=== PATIENT | female | born 1960 | race Caucasian/White ===

== ENCOUNTER 2018-04-15 18:05 | Emergency (ER) | payer OTHER ==
[~2018-04-15] VITALS: Ht 162.6 cm; Wt 114.8 kg
[2018-04-15] MEDS ORDERED: HYDR-971 PO (23:30)
--- NOTE | 2018-04-15 23:31 | PHYS DOC ---
Past Medical History Past Medical History: No Pertinent History Past Surgical History: No Surgical History Alcohol Use: Occasionally Drug Use: None Adult General Chief Complaint Chief Complaint: FOOT INJURY PAIN [facility] HPI Patient is a 58 year old female who presents with top of foot pain with walking times one month causing her to walk differently last month. Patient states that she saw her primary care and when stained told her about it and the doctor stated that it was probably arthritis. Patient states that now since Sunday foot has been slightly more swollen than it has been and the ball of the foot is hurting to the point where she sits that is hard to walk on has been kind of walking on her heel. Patient states her pain is an 8 out of 10 and that is his a deep throbbing pain. Patient states she has had nothing for pain. Patient denies fevers or any medication use daily. She has no known drug allergies. Review of Systems Review of Systems Constitutional: Denies fever or chills [] Eyes: Denies change in visual acuity, redness, or eye pain [] HENT: Denies nasal congestion or sore throat [] Respiratory: Denies cough or shortness of breath [] Cardiovascular: No additional information not addressed in HPI [] GI: Denies abdominal pain, nausea, vomiting, bloody stools or diarrhea [] : Denies dysuria or hematuria [] Musculoskeletal: Denies back pain or joint pain. Right foot swelling and pain x 1 month. [] Integument: Denies rash or skin lesions [] Neurologic: Denies headache, focal weakness or sensory changes [] Endocrine: Denies polyuria or polydipsia [] All other systems were reviewed and found to be within normal limits, except as documented in this note. Current Medications Current Medications Current Medications Medications (Trade) Dose Ordered Sig/[facility] Start Time Stop Time Status Last Admin Dose Admin Acetaminophen/ Hydrocodone Bitart (Lortab 5/325) 1 tab 1X ONCE 04/16/18 00:00 04/16/18 00:01 Allergies Allergies Allergies Coded Allergies Type Severity Reaction Last Updated Verified No Known Drug Allergies 04/15/18 No Physical Exam Physical Exam Constitutional: Well developed, well nourished, no acute distress, non-toxic appearance. [] HENT: Normocephalic, atraumatic, bilateral external ears normal, oropharynx moist, no oral exudates, nose normal. [] Eyes: PERRLA, EOMI, conjunctiva normal, no discharge. [] Neck: Normal range of motion, no tenderness, supple, no stridor. [] Cardiovascular:Heart rate regular rhythm, no murmur [] Lungs & Thorax: Bilateral breath sounds clear to auscultation [] Abdomen: Bowel sounds normal, soft, no tenderness, no masses, no pulsatile masses. [] Skin: Warm, dry, no erythema, no rash. [] Back: No tenderness, no CVA tenderness. [] Extremities: Anterior foot tenderness, no cyanosis, no clubbing, ROM intact, 1+ edema. [] Neurologic: Alert and oriented X 3, normal motor function, normal sensory function, no focal deficits noted. [] Psychologic: Affect normal, judgement normal, mood normal. [] Current Patient Data Vital Signs Vital Signs Date Time Temp Pulse Resp B/P (MAP) Pulse Ox O2 Delivery O2 Flow Rate FiO2 04/15/18 22:31 98.6 94 18 217/115 (149) 100 Room Air 98.6 EKG EKG [] Radiology/Procedures Radiology/Procedures Right foot Impressions: No acute findings and read by Dr Felix Course & Med Decision Making Course & Med Decision Making Patient is a 58 year old female who presents with top of foot pain with walking times one month causing her to walk differently last month. Patient states that she saw her primary care and when stained told her about it and the doctor stated that it was probably arthritis. Patient states that now since Sunday foot has been slightly more swollen than it has been and the ball of the foot is hurting to the point where she sits that is hard to walk on has been kind of walking on her heel. Patient states her pain is an 8 out of 10 and that is his a deep throbbing pain. Patient states she has had nothing for pain. Patient denies fevers or any medication use daily. She has no known drug allergies. Pedal pulse is strong and present in the right foot. Patient's right foot has 1+ edema compared to the left foot. Patient has no calf pain or swelling of the leg. Patient has no joint pain, redness, heat or swelling of the joint. Patient's right extremity is warm and skin is pink warm and dry. Patient denies the foot or the leg going numb, or tingling, or turning pale and cold. Patient is neurologically intact and has no weaknesses. X-ray of right foot shows no acute findings and was read by Dr. Felix. Homans sign negative. Wells score is 0. Patient is given one [place] here in the ED. Post op shoe is given with a prescription for pain medication and follow up with primary care. [] Dragon Disclaimer Dragon Disclaimer This electronic medical record was generated, in whole or in part, using a voice recognition dictation system. Departure Departure Impression: Primary Impression: Acute foot pain Disposition: HOME, SELF-CARE Condition: STABLE Referrals: GLADYS GELLER MD (PCP) Patient Instructions: Pain of Unknown Etiology (Pain without a known Cause) Additional Instructions: Take ibuprofen for pain. Follow up with your primary care physician. Scripts Hydrocodone/Apap 5-325 (NORCO 5-325 TABLET) 1 Each Tablet 1 TAB PO PRN Q6HRS PRN for PAIN, #6 TAB 0 Refills Prov: NICOLETTE AHUMADA APRN 04/15/18 Problem Qualifiers Primary Impression: Acute foot pain Laterality: right Qualified Codes: M79.671 - Pain in right foot NICOLETTE AHUMADA APRN Apr 15, 2018 23:31
--- NOTE | 2018-04-15 23:49 | RAD ---
Three-view right foot radiographs 04/15/2018 HISTORY: Right foot pain and swelling for 3 days. AP, lateral and oblique digital radiographs of the right foot were obtained. No fracture or dislocation of the right foot is seen. Mild/moderate degenerative changes are seen scattered throughout the interphalangeal joints of the right foot along with the first MTP joint. Mild hallux valgus deformity is noted. Moderate enthesophyte formation is seen involving the plantar aspect of the posterior right calcaneus. IMPRESSION: Degenerative changes are seen involving the right foot as outlined above. No acute osseous abnormality is seen. Electronically signed by: Marc Hollis MD (04/15/2018 11:45 PM) [facility]
[2018-04-15 23:57] VITALS: BP 180/96
[2018-04-16] MEDS ORDERED: HYDROcodone/APAP 5/325MG 1 TAB TABLET PO ONE
== END 2018-04-15 23:55 | disposition home or self-care (01) ==
LOC: ER 18:05
DX: M79.671 Pain in right foot (principal); R22.41 Localized swelling, mass and lump, right lower limb
CPT/HCPCS: 73630; 99284

== ENCOUNTER → 2018-05-06 | Outpatient (CLI) | payer OTHER ==
[2018-04-15 23:57] VITALS: BP 180/96
[~2018-05-06] MED LIST: HYDR-971 PO
--- NOTE | 2018-05-14 10:52 | KCIC ---
EXAM: Bilateral digital screening mammogram with tomosynthesis. HISTORY: 58-year-old female presents for screening mammography. TECHNIQUE: Full-field digital craniocaudal and mediolateral oblique 2D and 3D tomosynthesis images of both breasts are obtained for evaluation. Computer aided detection with WisdomTree[employer] software version 9.3 was applied. COMPARISON: 01/01/2017 BREAST PARENCHYMAL DENSITY: BI-RADS Category 2: Benign finding(s). . FINDINGS: There is no new suspicious mass, microcalcification or region of architectural distortion. There are few benign nodular densities within both breasts which are more conspicuous compared to the prior study due to differences in technique. IMPRESSION: BI-RADS Category 2: Benign finding(s). RECOMMENDATION: Annual mammography is recommended. If your mammogram demonstrates that you have dense breast tissue, which could hide abnormalities, and if you have other risk factors for breast cancer that have been identified, you might benefit from supplemental screening tests that may be suggested by your ordering physician. Dense breast tissue, in and of itself, is a relatively common condition. This information is not provided to cause undue concern, but rather to raise your awareness and to promote discussion with your physician regarding the presence of other risk factors, in addition to dense breast tissue. A report of your mammography results will be sent to you and your physician. You should contact your physician if you have any questions or concerns regarding this report. Mammography is a sensitive method for finding small breast cancers, but it does not detect them all and is not a substitute for careful clinical examination. A negative mammogram does not negate a clinically suspicious finding and should not result in delay in biopsying a clinically suspicious abnormality. PQRS compliance statement - Patient information was entered into a reminder system with a target due date for the next mammogram. "Our facility is accredited by the [employer] Mammography Program." Electronically signed by: Savita Oh MD (05/14/2018 10:49 AM) [facility]
== END | disposition home or self-care (01) ==
LOC: KCIC MAMMO 17:26
PROVIDERS: ATTEND Family Medicine
DX: Z12.31 Encounter for screening mammogram for malignant neoplasm of breast (principal)
CPT/HCPCS: 77063; 77067

== ENCOUNTER → 2019-08-15 | Outpatient (CLI) | payer OTHER ==
[~2019-08-15] MED LIST changes: +HYDR-3164 PO; -HYDR-971 PO
--- NOTE | 2019-08-15 14:55 | KCIC ---
Bilateral digital screening mammograms with 3-D tomosynthesis: Reason for examination: Routine screening. Comparison is made to previous studies dated back to 01/03/2016. Bilateral mammograms in CC and oblique projections were obtained with 2-D imaging and 3-D tomosynthesis imaging on a [employer] Inspiration unit and reviewed on the workstation. Interpretation was made with the benefit of CAD. The skin and nipples show no abnormalities. No abnormal axillary lymph nodes are seen. The breast parenchyma is predominantly fatty. (Breast density: Category A.) There continue to be small parenchymal densities bilaterally which are stable. There are no new dominant masses, suspicious calcifications or architectural distortion. Impression: No evidence of malignancy. Recommend routine screening. BI-RAD Category 2: Benign. "Our facility is accredited by the [employer] Mammography Program." This patient's information has been entered into a reminder system for the patient to be notified with the results of her examination and a target date for the next mammogram. Electronically signed by: Mary Mantilla MD (08/15/2019 2:52 PM) [id number]
== END | disposition home or self-care (01) ==
LOC: KCIC MAMMO 13:51
PROVIDERS: ATTEND Family Medicine
DX: Z12.31 Encounter for screening mammogram for malignant neoplasm of breast (principal)
CPT/HCPCS: 77063; 77067

== ENCOUNTER 2020-05-09 19:27 | Emergency (ER) | payer OTHER ==
[~2020-05-09] VITALS: Ht 165.1 cm; Wt 90.0 kg
[2020-05-09 19:30] VITALS: BP 155/89
[2020-05-09] MEDS ORDERED: DEXAMETHASONE SOD PHOS 4 MG/ML VIAL PO ONE (20:15)
--- NOTE | 2020-05-09 20:19 | PHYS DOC ---
Past Medical History Past Medical History: No Pertinent History Past Surgical History: No Surgical History Smoking Status: Never Smoker Alcohol Use: Occasionally Drug Use: None General Adult EDM: Chief Complaint: SORE THROAT HPI: HPI: Patient is a 60 year old female with no past medical history currently on no medications presents with a chief complaint of sensation of swelling in her throat. Patient states symptoms started yesterday around 2000 hrs. Patient states feels as if there is something swollen in her throat. Patient is able to handle oral secretions no difficulty breathing. Patient does states she has some nasal congestion with nasal drip for the last several weeks not getting worse. Patient denies any associated fever or chills cough. On exam there is no pharyngeal erythema swelling or exudate. I do not visualize any oral pharyngeal abnormalities. Palpation of her neck I do not feel any swollen lymph nodes or masses. She has no associated rash. Patient states her daughter had similar episodes a few years ago. Review of Systems: Review of Systems: Constitutional: Denies fever or chills. [] Eyes: Denies change in visual acuity. [] HENT: Denies nasal congestion or sore throat. [Discomfort with swallowing] Respiratory: Denies cough or shortness of breath. [] Cardiovascular: Denies chest pain or edema. [] GI: Denies abdominal pain, nausea, vomiting, bloody stools or diarrhea. [] : Denies dysuria. [] Musculoskeletal: Denies back pain or joint pain. [] Integument: Denies rash. [] Neurologic: Denies headache, focal weakness or sensory changes. [] Endocrine: Denies polyuria or polydipsia. [] Lymphatic: Denies swollen glands. [] Psychiatric: Denies depression or anxiety. [] Heart Score: Risk Factors: Risk Factors: DM, Current or recent (<one month) smoker, HTN, HLP, family history of CAD, obesity. Risk Scores: Score 0 - 3: 2.5% MACE over next 6 weeks - Discharge Home Score 4 - 6: 20.3% MACE over next 6 weeks - Admit for Clinical Observation Score 7 - 10: 72.7% MACE over next 6 weeks - Early Invasive Strategies Allergies: Allergies: Allergies Coded Allergies Type Severity Reaction Last Updated Verified No Known Drug Allergies 04/15/18 No Physical Exam: PE: Constitutional: Well developed, well nourished, no acute distress, non-toxic appearance. [] HENT: Normocephalic, atraumatic, bilateral external ears normal, oropharynx moist, no oral exudates, nose normal. [] Eyes: PERRLA, EOMI, conjunctiva normal, no discharge. [] Neck: Normal range of motion, no tenderness, supple, no stridor. [] Cardiovascular:Heart rate regular rhythm, no murmur [] Lungs & Thorax: Bilateral breath sounds clear to auscultation [] Abdomen: Bowel sounds normal, soft, no tenderness, no masses, no pulsatile m asses. [] Skin: Warm, dry, no erythema, no rash. [] Back: No tenderness, no CVA tenderness. [] Extremities: No tenderness, no cyanosis, no clubbing, ROM intact, no edema. [] Neurologic: Alert and oriented X 3, normal motor function, normal sensory function, no focal deficits noted. [] Psychologic: Affect normal, judgement normal, mood normal. [] Current Patient Data: Vital Signs: Vital Signs Date Time Temp Pulse Resp B/P (MAP) Pulse Ox O2 Delivery O2 Flow Rate FiO2 05/09/20 19:30 98.4 98 20 155/89 (111) 97 Room Air 98.4 EKG: EKG: [] Radiology/Procedures: Radiology/Procedures: [] Course & Med Decision Making: Course & Med Decision Making Pertinent Labs and Imaging studies reviewed. (See chart for details) [] Dragon Disclaimer: Dragon Disclaimer: This electronic medical record was generated, in whole or in part, using a voice recognition dictation system. Departure Departure Impression: Primary Impression: Dysphagia Additional Impression: Odynophagia Disposition: 01 DC HOME SELF CARE/HOMELESS Condition: STABLE Referrals: SHERRY CARRANZA MD (PCP) Patient Instructions: Dysphagia DANNIE BERMAN I DO May 09, 2020 20:19
== END 2020-05-09 20:33 | disposition home or self-care (01) ==
LOC: ER 19:27
DX: R13.10 Dysphagia, unspecified (principal)
CPT/HCPCS: 99283; J1100

== ENCOUNTER → 2020-07-02 | Outpatient (CLI) | payer OTHER ==
[2020-07-02 12:33] LABS: HEMATOCRIT 37.3 % (36.0-47.0); HEMOGLOBIN 12.7 g/dL (12.0-15.5); RED BLOOD COUNT 4.1 x10^6/uL (3.50-5.40); RED CELL DISTRIBUTION WIDTH 15.4 % (11.5-14.5); WHITE BLOOD COUNT 7.4 x10^3/uL (4.0-11.0)
[2020-07-02 12:45] LABS: ALBUMIN 3.7 g/dL (3.4-5.0); ALBUMIN/GLOBULIN RATIO 1.1 (1.0-1.7); CALCIUM 8.7 mg/dL (8.5-10.1); CREATININE 0.6 mg/dL (0.6-1.0); GFR 102.7; POTASSIUM 3.5 mmol/L (3.5-5.1); TOTAL BILIRUBIN 0.8 mg/dL (0.2-1.0); TOTAL PROTEIN 7.2 g/dL (6.4-8.2)
== END ==
LOC: LAB 11:55
PROVIDERS: ATTEND Family Medicine
DX: Z01.419 Encounter for gynecological examination (general) (routine) without abnormal findings (principal)
CPT/HCPCS: 36415; 80053; 82306; 85027

== ENCOUNTER 2021-08-26 17:24 | Emergency (ER) | payer OTHER ==
[~2021-08-26] VITALS: Ht 162.6 cm; Wt 90.9 kg
--- NOTE | 2021-08-26 17:48 | PHYS DOC ---
Past Medical History Past Medical History: No Pertinent History Past Surgical History: No Surgical History Smoking Status: Never Smoker Alcohol Use: Occasionally Drug Use: None General Adult EDM: Chief Complaint: ANKLE PROBLEM HPI: HPI: Patient is a 61 year old female who presents with right ankle injury. Patient states that she was standing on a chair to change a light bulb. The chair started to tip, so she extended her right foot to the ground to try to catch herself, but ended up inverting the foot as she landed. Patient was able to walk afterward, however with pain. She denies knee pain, paresthesias, skin color change. Review of Systems: Review of Systems: Constitutional: Denies fever, chills or generalized weakness Eyes: Denies change in visual acuity, visual field deficits or discharge HENT: Denies ear pain, nasal congestion or sore throat Respiratory: Denies cough or shortness of breath Cardiovascular: Denies chest pain, palpitations or edema GI: Denies abdominal pain, nausea, vomiting, bloody stools or diarrhea : Denies dysuria or hematuria Musculoskeletal: See HPI Integument: Denies rash or other skin lesion Neurologic: Denies headache, focal weakness or sensory changes Heart Score: C/O Chest Pain: No Allergies: Allergies: Allergies Coded Allergies Type Severity Reaction Last Updated Verified No Known Drug Allergies 08/26/21 No Physical Exam: PE: Constitutional: Well developed, well nourished, no acute distress, non-toxic appearance. HENT: Normocephalic, atraumatic, bilateral external ears normal, nose normal. Eyes: EOMI, conjunctiva normal, no discharge. Neck: Normal range of motion, no stridor. Skin: Warm, dry, no erythema, no rash. Extremities: Right ankle with lateral and medial malleoli are swelling and tenderness, active range of motion intact but painful (slight limitation to foot inversion), DP/PT pulses 2+, cap refill less than 2 seconds. Extremities otherwise no tenderness, no cyanosis, no clubbing, ROM intact, no edema. Neurologic: Alert and oriented x4, no focal deficits noted. Current Patient Data: Vital Signs: Vital Signs Date Time Temp Pulse Resp B/P (MAP) Pulse Ox O2 Delivery O2 Flow Rate FiO2 08/26/21 17:25 97.6 96 20 171/95 (120) Room Air 97.6 Radiology/Procedures: Radiology/Procedures: PROCEDURE: ANKLE RIGHT 3V Exam: Right ankle 3 views INDICATION: Inversion injury TECHNIQUE: Frontal, lateral and oblique views Comparisons: None FINDINGS: There is a minimally displaced fracture involving the lateral PROCESS the talus. There is overlying soft tissue swelling. Joint spaces are well-maintained. IMPRESSION: Minimally displaced fracture involving the lateral process of the talus. Electronically signed by: Waldo Ibarra MD (08/26/2021 6:54 PM) [facility] PROCEDURE: KNEE RIGHT 3V Exam: Right knee 3 views INDICATION: Inversion injury TECHNIQUE: Frontal, lateral or oblique views of the right knee Comparisons: None FINDINGS: Bone mineralization is normal. No acute or healed fractures. Soft tissues are unremarkable. Joint spaces are well-maintained. IMPRESSION: No acute osseous abnormality. Electronically signed by: Waldo Ibarra MD (08/26/2021 6:55 PM) [facility] Course & Med Decision Making: Course & Med Decision Making Pertinent Labs and Imaging studies reviewed. (See chart for details) Patient is a 61-year-old female who presents to the emergency department after an inversion injury stepping down from a chair that was tipping. Patient was able to ambulate afterward, though painfully. Plain films are ordered. Plain x-ray films show questionable talar fracture, however if present, it is nondisplaced. Patient will be placed in a stirrup splint and referred to podiatry for follow-up evaluation and management. Patient's questions were answered. She understands and is agreeable to discharge plan. Dragkenneth Disclaimer: Katya Disclaimer: This electronic medical record was generated, in whole or in part, using a voice recognition dictation system. Departure Departure Impression: Primary Impression: Sprain of unspecified ligament of right ankle, initial encounter Additional Impression: Suspected fracture of bone Disposition: HOME / SELF CARE / HOMELESS Condition: IMPROVED Referrals: SHERRY CARRANZA MD (PCP) FARAZ PARKER DPM Patient Instructions: Ankle Sprain, [id number], Splint Care, [id number] Additional Instructions: EMERGENCY DEPARTMENT GENERAL DISCHARGE INSTRUCTIONS Thank you for coming to [facility] Emergency Department (ED) today and trusting us with you care. We trust that you had a positive experience in our Emergency Department. If you wish to speak to the department management, you may call the director at . YOUR FOLLOW UP INSTRUCTIONS ARE FOLLOWS: 1. Follow up with your primary care doctor. If you do not have a primary doctor, please ask for a resource list of physicians or clinics that may be able to assist you with follow up care. 2. The emergency provider has interpreted your imaging studies, if any were ordered. The radiology software computer specialist also reviewed them. If there is a change in the findings, you will be notified in 48 hours when at all possible. 3. If a lab test or culture has been done, your results will be reviewed and you will be notified if you need a change in treatment. 4. Follow instructions verbalized to you and refer to the printouts if needed. ADDITIONAL INSTRUCTIONS AND INFORMATION: 1. Your care today has been supervised by a physician who is specially trained in emergency care. Many problems require more than one evaluation for a complete diagnosis and treatment. We recommend that you schedule your follow up appointment as recommended to ensure complete treatment of you illness or injury. If you are unable to obtain follow up care and continue to have a p roblem, or if your condition worsens, we recommend that you return to the ED. 2. We are not able to safely determine your condition over the phone nor are we able to give sound medical advice over the phone. For these safety reasons, if you call for medical advice we will ask you to come to the ED for further evaluation. 3. If you have any questions regarding these discharge instructions please call the ED at . SAFETY INFORMATION: In the interest of safety, wellness, and injury prevention; we encourage you to wear your seat belt, if you smoke; quite smoking, and we encourage family to use a protective helmet for bicycling and other sporting events that present an increased risk for head injury. IF YOUR SYMPTOMS WORSEN OR NEW SYMPTOMS DEVELOP, OR YOU HAVE CONCERNS ABOUT YOUR CONDITION; OR IF YOUR CONDITION WORSENS WHILE YOU ARE WAITING FOR YOUR FOLLOW UP APPOINTMENT; EITHER CONTACT YOUR PRIMARY CARE DOCTOR, THE PHYSICIAN WHOSE NAME AND NUMBER YOU WERE GIVEN, OR RETURN TO THE ED IMMEDIATELY. CRIS WILHELM Aug 26, 2021 17:48
[2021-08-26] MEDS ORDERED: KETOROLAC 60 MG/2 ML VIAL. IM ONE (18:00)
[2021-08-26 18:21] VITALS: BP 162/85
--- NOTE | 2021-08-26 18:56 | RAD ---
Exam: Right ankle 3 views INDICATION: Inversion injury TECHNIQUE: Frontal, lateral and oblique views Comparisons: None FINDINGS: There is a minimally displaced fracture involving the lateral PROCESS the talus. There is overlying s oft tissue swelling. Joint spaces are well-maintained. IMPRESSION: Minimally displaced fracture involving the lateral process of the talus. Electronically signed by: Waldo Ibarra MD (08/26/2021 6:54 PM) [facility]
--- NOTE | 2021-08-26 18:57 | RAD ---
Exam: Right knee 3 views INDICATION: Inversion injury TECHNIQUE: Frontal, lateral or oblique views of the right knee Comparisons: None FINDINGS: Bone mineralization is normal. No acute or healed fractures. Soft tissues are unremarkable. Joint spa rubin are well-maintained. IMPRESSION: No acute osseous abnormality. Electronically signed by: Waldo Ibarra MD (08/26/2021 6:55 PM) [facility]
== END 2021-08-26 19:29 | disposition home or self-care (01) ==
LOC: ER 17:24
DX: S93.401A Sprain of unspecified ligament of right ankle, initial encounter (principal); X58.XXXA Exposure to other specified factors, initial encounter; Y93.89 Activity, other specified; Y92.89 Other specified places as the place of occurrence of the external cause; Y99.8 Other external cause status
CPT/HCPCS: 73562; 73610; 96372; 99284; J1885